=== PATIENT | male | born 1970 | race Asian ===

== ENCOUNTER 2018-07-06 15:59 | Inpatient (IN) | payer MEDICAID, OTHER ==
[~2018-07-06] VITALS: Ht 175.3 cm; Wt 80.3 kg
[2018-07-06] MEDS ORDERED: METF500T24 PO (21:13)
[2018-07-06] MEDS ORDERED: VALS40TA2 PO (21:13)
--- NOTE | 2018-07-06 21:13 | ERD ---
ER Documentation Chief Complaint Chief Complaint NON PROVOKED CP AT 12PM. EMS CLEARED AT HOME. PAIN CAME BACK NO SOB HPI 47-year-old male history of diabetes, hypertension hyperlipidemia ambulatory to the ED complaining of chest pain. 3 days ago patient began to experience exertional, squeezing, nonradiating episodes of substernal chest pain with shortness of breath but no nausea, vomiting or diaphoresis. He went to a urgent care clinic and was diagnosed with GERD and treated with omeprazole. Symptoms have been worsening and today while walking and an episode of severe pain resolved after 10 minutes of rest but then recurred 2 more times prior to arrival. Denies abdominal pain or back pain. No leg pain or swelling. No URI symptoms, cough or hemoptysis. Denies headache, focal weakness or numbness. No fevers or chills. ROS All systems reviewed and are negative except as per history of present illness. Medications Home Meds Reported Medications Ranitidine Hcl* (Ranitidine Hcl*) 150 Mg Tablet, 150 MG PO Q12, #60 TAB 07/06/18 Simvastatin* (Zocor*) 20 Mg Tablet, 20 MG PO QHS, #30 TAB 07/06/18 Benazepril Hcl* (Benazepril Hcl*) 20 Mg Tablet, 20 MG PO DAILY, #30 TAB 07/06/18 Valsartan* (Diovan*) Unknown Strength Tablet, 1 TAB PO DAILY, TAB 07/06/18 Metformin Hcl* (Metformin Hcl*) 500 Mg Tablet, 500 MG PO WITH BREAKFAST, #30 TAB 07/06/18 Allergies Allergies: Coded Allergies: No Known Allergy (Unverified , 07/06/18) PMhx/Soc Reviewed in chart. As per HPI. History of Surgery: No Anesthesia Reaction: No Hx Neurological Disorder: No Hx Respiratory Disorders: No Hx Cardiac Disorders: Yes (hypertension) Hx Psychiatric Problems: No Hx Miscellaneous Medical Probl: No Hx Alcohol Use: No Hx Substance Use: No Smoking Status: Never smoker FmHx Diabetes but no coronary artery disease or sudden cardiac Physical Exam Vitals Vital Signs Date Temp Pulse Resp B/P (MAP) Pulse Ox O2 O2 Flow FiO2 Time Delivery Rate 07/06/18 75 15 140/102 99 Room Air 22:00 (115) 07/06/18 98.7 75 16 153/112 99 Room Air 20:59 (126) 07/06/18 98.0 94 20 160/91 98 16:28 (114) Physical Exam Const: Anxious but in no acute distress. Head: Atraumatic Eyes: Normal Conjunctiva ENT: Normal External Ears, Nose and Mouth. Neck: Full range of motion. No meningismus. Resp: Clear to auscultation bilaterally Cardio: Regular rate and rhythm, no murmurs. Chest Wall: No tenderness. Abd: Soft, non tender, non distended. Normal bowel sounds Skin: No petechiae or rashes Back: No midline or flank tenderness Ext: No cyanosis, or edema. Pulses 4+ in all extremities Neur: Awake and alert. No focal deficit Psych: Anxious but not depressed. Result Diagram: 07/07/18 0507 07/07/18 0507 Results 24 hrs Laboratory Tests Test 07/06/18 20:56 White Blood Count 7.7 10^3/ul Red Blood Count 5.92 10^6/ul Hemoglobin 17.0 g/dl Hematocrit 50.8 % Mean Corpuscular Volume 85.8 fl Mean Corpuscular Hemoglobin 28.7 pg Mean Corpuscular Hemoglobin Concent 33.5 g/dl Red Cell Distribution Width 12.4 % Platelet Count 247 10^3/UL Mean Platelet Volume 10.7 fl Immature Granulocytes % 0.300 % Neutrophils % 47.9 % Lymphocytes % 35.4 % Monocytes % 10.6 % Eosinophils % 5.0 % Basophils % 0.8 % Nucleated Red Blood Cells % 0.0 /100WBC Immature Granulocytes # 0.020 10^3/ul Neutrophils # 3.7 10^3/ul Lymphocytes # 2.7 10^3/ul Monocytes # 0.8 10^3/ul Eosinophils # 0.4 10^3/ul Basophils # 0.1 10^3/ul Nucleated Red Blood Cells # 0.0 10^3/ul Prothrombin Time 12.3 Sec Prothrombin Time Ratio 1.0 INR International Normalized Ratio 0.90 Activated Partial Thromboplast Time 30.8 Sec Sodium Level 140 mmol/L Potassium Level 4.2 mmol/L Chloride Level 102 mmol/L Carbon Dioxide Level 30 mmol/L Anion Gap 8 Blood Urea Nitrogen 13 mg/dl Creatinine 0.97 mg/dl Est Glomerular Filtrat Rate mL/min > 60 mL/min Glucose Level 160 mg/dl Calcium Level 10.0 mg/dl Total Bilirubin 0.6 mg/dl Direct Bilirubin 0.00 mg/dl Indirect Bilirubin 0.6 mg/dl Aspartate Amino Transf (AST/SGOT) 35 IU/L Alanine Aminotransferase (ALT/SGPT) 42 IU/L Alkaline Phosphatase 95 IU/L Troponin I 1.380 ng/ml Total Protein 8.3 g/dl Albumin 4.7 g/dl Globulin 3.60 g/dl Albumin/Globulin Ratio 1.30 Current Medications Medications Dose Sig/Shanika Start Time Status Last (Trade) Ordered Route PRN Stop Time Admin Dose Reason Admin Aspirin 325 mg ONCE STAT 07/06/18 DC 07/06/18 (Aspirin) PO 21:21 22:01 07/06/18 21:22 Heparin 4,000 unit ONCE STAT 07/06/18 DC Sodium IV 22:16 (Porcine) 07/06/18 22:32 (Heparin (1000 Units/ml)) Heparin 250 ml @ 0 ONCE STAT 07/06/18 DC Sodium mls/hr IV 22:16 (Porcine) 07/06/18 22:32 Enoxaparin 80 mg Q12 SC 07/06/18 DC Sodium 22:30 (Lovenox) 07/06/18 22:59 Procedures/MDM DOCUMENTS REVIEWED: ED nurse, no prior records EKG: Time: 16:31. His rhythm. Ventricular rate 91. Normal MT and QRS. No acute ST elevation or depression. Right axis. No ectopy. My Interpretation IMAGING: CHest AP portable: No cardiomegaly, effusions or infiltrates. No mediastinal widening or bony abnormalities. My Interpretation. MEDICAL DECISION MAKIN-year-old male history of diabetes, hypertension hyperlipidemia ambulatory to the ED complaining of chest pain. 3 days ago patient began to experience exertional, squeezing, nonradiating episodes of substernal chest pain with shortness of breath but no nausea, vomiting or diaphoresis. HEART score: 5. Elevated troponin without acute ST elevation consistent with NSTEACS. No chest pain in ED. Aspirin, heparin bolus and infusion initiated. Chest x-ray negative for CHF, pneumonia and pneumothorax. PE and aortic dissection considered. Admit to telemetry for cardiology consultation, further evaluation and management. CARE TRANSFERRED: Time: 22:46. Dr Chavez. CRITICAL CARE TIME: Due to the high probability of imminent clinically significant hemodynamic and cardiovascular deterioration, this patient with chest pain and NSTEACS required multiple, frequent reevaluations of vital signs and response to therapy including intravenous anticoagulation. Additional critical care time was spent in interpretation of relevant clinical data as well as arranging for admission and ongoing care. TOTAL CRITICAL CARE TIME: 35 minutes not including other separately reportable procedures. Departure Diagnosis: Primary Impression: Chest pain Chest pain type: unspecified Qualified Codes: R07.9 - Chest pain, unspecified Additional Impressions: NSTEMI (non-ST elevated myocardial infarction) Diabetes mellitus type 2 in obese Essential hypertension Condition: Serious JAMIE CERVANTES MD Jul 06, 2018 21:13
[2018-07-06] MEDS ORDERED: BENA20TA4 PO (21:14)
[2018-07-06] MEDS ORDERED: SIMV20TA PO (21:14)
[2018-07-06] MEDS ORDERED: RANI150T5 PO (21:15)
[2018-07-06] MEDS ORDERED: ASPIRIN 325 MG TAB PO STA (21:21)
[2018-07-06] MEDS ORDERED: HEPARIN 25000 UNITS/250 ML 250 ML IV STA (22:16)
[2018-07-06] MEDS ORDERED: HEPARIN 1000 UNITS/ML 10 ML INJ IV STA (22:16)
[2018-07-06] MEDS ORDERED: ENOXAPARIN 80 MG/0.8 ML SYG SC SCH (22:30)
--- NOTE | 2018-07-06 22:54 | HP ---
Date/Time of Note Date/Time of Note DATE: 07/06/18 TIME: 22:54 Assessment/Plan VTE Prophylaxis Pharmacological prophylaxis: other Lines/Catheters IV Catheter Type (from Nrsg): Saline Lock Assessment/Plan Hospital Course Objective Physical exam General: Patient is laying in bed and answers questions appropriately Mentation: Patient is alert and oriented 4, Head: Normocephalic atraumatic Eyes: EOMI, pupils reactive to light Neck: Supple, nontender, midline Respiratory: Clear to auscultation bilaterally Cardiovascular: regular rate, no obvious murmurs Gastrointestinal: non-tender to palpation, bowel sounds heard. Neurological: Moves all extremities spontaneously Skin: No new skin lesions Assessment and plan Non-ST elevated NC -Trend troponins -Cardiology consulted, Dr. Gómez, confirmed -Cardiology wants heparin instead of Lovenox due to being able to turn off quicker as he wants to likely perform cardiac cath tomorrow -Statin -Aspirin -Mild IV hydration while n.p.o. Hypertension -Treat as needed Dyslipidemia -Statin Diabetes mellitus -Hold home meds, insulin sliding scale for now Disposition -N.p.o. per cardiology wishes, cardiac cath likely tomorrow Result Diagram: 07/06/18205507/06/182055 Results 24hrs Laboratory Tests Test 07/06/18 20:56 White Blood Count 7.7 Red Blood Count 5.92 Hemoglobin 17.0 Hematocrit 50.8 Mean Corpuscular Volume 85.8 Mean Corpuscular Hemoglobin 28.7 L Mean Corpuscular Hemoglobin Concent 33.5 Red Cell Distribution Width 12.4 Platelet Count 247 Mean Platelet Volume 10.7 H Immature Granulocytes % 0.300 Neutrophils % 47.9 Lymphocytes % 35.4 Monocytes % 10.6 Eosinophils % 5.0 Basophils % 0.8 Nucleated Red Blood Cells % 0.0 Immature Granulocytes # 0.020 Neutrophils # 3.7 Lymphocytes # 2.7 Monocytes # 0.8 Eosinophils # 0.4 Basophils # 0.1 Nucleated Red Blood Cells # 0.0 Prothrombin Time 12.3 Prothrombin Time Ratio 1.0 INR International Normalized Ratio 0.90 Activated Partial Thromboplast Time 30.8 Sodium Level 140 Potassium Level 4.2 Chloride Level 102 Carbon Dioxide Level 30 Anion Gap 8 Blood Urea Nitrogen 13 Creatinine 0.97 Est Glomerular Filtrat Rate mL/min > 60 Glucose Level 160 Calcium Level 10.0 Total Bilirubin 0.6 Direct Bilirubin 0.00 Indirect Bilirubin 0.6 Aspartate Amino Transf (AST/SGOT) 35 Alanine Aminotransferase (ALT/SGPT) 42 Alkaline Phosphatase 95 Troponin I 1.380 *H Total Protein 8.3 H Albumin 4.7 Globulin 3.60 H Albumin/Globulin Ratio 1.30 HPI/ROS Admit Date/Time Admit Date/Time Hx of Present Illness Patient is a male with a past medical history significant for diabetes mellitus, dyslipidemia, hypertension who presents to [facility] ER for chest pain. Patient states that approximately 3 days ago he has had on and off substernal chest pain. Patient went to urgent care was diagnosed with acid reflux and was sent home with acid reflux medication. Patient continued to have exertional chest pain and pain continued which is why he came to the ED. Patient currently has mild to no chest pain. Patient denies abdominal pain, leg pain, headache, shortness of breath, nausea, vomiting. Patient states that the only surgery he had is an abdominal surgery for SBO many years ago. Patient has no cardiac history according to him PMH/Family/Social Past Medical History Medications Current Medications Enoxaparin Sodium (Lovenox) 80 mg Q12 SC ; Start 07/06/18 at 22:30 Miscellaneous Information (* Miscellaneous Pharmacy Order) Discontinue current oral sulfonylur... ONCE ONCE XX ; Start 07/06/18 at 23:00; Stop 07/06/18 at 23:01 Diagnostic Test (Pha) (Accu-Chek) 1 ea 02 XX ; Start 07/07/18 at 02:00 Miscellaneous Information (* Miscellaneous Pharmacy Order) HYPOGLYCEMIA PROTOCOL w... ONCE ONCE XX ; Start 07/06/18 at 23:00; Stop 07/06/18 at 23:01 Insulin Aspart (Novolog Insulin Pen) NOVOLOG *MILD* ALGORITHM WITH MEALS BEDTIME SC ; Start 07/07/18 at 08:00 Miscellaneous Information (* Miscellaneous Pharmacy Order) Discontinue all previ... ONCE ONCE XX ; Start 07/06/18 at 23:00; Stop 07/06/18 at 23:01 Ondansetron HCl (Zofran Inj) 4 mg ER BRIDGE PRN IV NAUSEA/VOMITING; Start 07/06/18 at 23:00; Stop 07/07/18 at 22:59 Acetaminophen (Tylenol Tab) 650 mg ER BRIDGE PRN PO .MILD PAIN 1-3 OR TEMP; Start 07/06/18 at 23:00; Stop 07/07/18 at 22:59 Miscellaneous Information 1 ea NOTE XX ; Start 07/06/18 at 23:00 Glucose (Glutose) 15 gm Q15M PRN PO DECREASED GLUCOSE; Start 07/06/18 at 23:00 Glucose (Glutose) 22.5 gm Q15M PRN PO DECREASED GLUCOSE; Start 07/06/18 at 23 :00 Dextrose (D50w Syringe) 25 ml Q15M PRN IV DECREASED GLUCOSE; Start 07/06/18 at 23:00 Dextrose (D50w Syringe) 50 ml Q15M PRN IV DECREASED GLUCOSE; Start 07/06/18 at 23:00 Glucagon (Glucagen) 1 mg Q15M PRN IM DECREASED GLUCOSE; Start 07/06/18 at 23:00 Glucose (Glutose) 15 gm Q15M PRN BUCCAL DECREASED GLUCOSE; Start 07/06/18 at 23:00 Miscellaneous Information (* Miscellaneous Pharmacy Order) DC previous hepa... ONCE ONCE XX ; Start 07/06/18 at 23:00; Stop 07/06/18 at 23:01; Status UNV Heparin Sodium (Porcine) (Heparin (1000 Units/ml)) 4,000 unit ONCE ONCE IV ; Start 07/06/18 at 23:00; Stop 07/06/18 at 23:01; Status UNV Heparin Sodium (Porcine) (Heparin (1000 Units/ml)) 4,000 unit PER PROTOCOL PRN IV aPTT<47; Start 07/06/18 at 23:00; Status UNV Heparin Sodium (Porcine) 250 ml @ 0 mls/hr PER PROTOCOL IV ; Start 07/06/18 at 23:00; Status UNV Sodium Chloride 1,000 ml @ 75 mls/hr [id number] IV ; Start 07/06/18 at 23:00; Status UNV Pantoprazole (Protonix Iv) 40 mg DAILY@06 IV ; Start 07/07/18 at 06:00; Status UNV Atorvastatin Calcium (Lipitor) 80 mg HS PO ; Start 07/07/18 at 21:00; Status UNV Atorvastatin Calcium (Lipitor) 80 mg ONCE ONCE PO ; Start 07/06/18 at 23:00; Stop 07/06/18 at 23:01; Status UNV Coded Allergies: No Known Allergy (Unverified , 07/06/18) Social History Smoking Status: Never smoker Exam/Review of Systems Vital Signs Vitals Vital Signs Date Temp Pulse Resp B/P (MAP) Pulse Ox O2 O2 Flow FiO2 Time Delivery Rate 07/06/18 98.7 75 16 153/112 99 Room Air 20:59 (126) BINH GRESHAM Jul 06, 2018 22:54
[2018-07-06] MEDS ORDERED: GLUCAGON 1 MG INJ IM PRN (23:00)
[2018-07-06] MEDS ORDERED: GLUCOSE GEL 15 GRAM TUBE BUCCAL PRN (23:00)
[2018-07-06] MEDS ORDERED: HEPARIN 1000 UNITS/ML 10 ML INJ IV PRN (23:00)
[2018-07-06] MEDS ORDERED: ACETAMINOPHEN 325 MG TAB PO PRN ×2 (23:00)
[2018-07-06] MEDS ORDERED: ATORVASTATIN 80 MG TAB PO ONE (23:00)
[2018-07-06] MEDS ORDERED: GLUCOSE GEL 15 GRAM TUBE PO PRN ×2 (23:00)
[2018-07-06] MEDS ORDERED: HEPARIN 25000 UNITS/250 ML 250 ML IV SCH (23:00)
[2018-07-06] MEDS ORDERED: NACL 0.9% 3 ML SYG IV SCH (23:00)
[2018-07-06] MEDS ORDERED: NITROGLYCERIN (SL) 0.4 MG TAB SL PRN (23:00)
[2018-07-06] MEDS ORDERED: DEXTROSE 50% 50 ML SYRINGE IV PRN ×2 (23:00)
[2018-07-06] MEDS ORDERED: ONDANSETRON 4 MG INJ IV PRN ×2 (23:00)
[2018-07-06] MEDS ORDERED: HEPARIN 1000 UNITS/ML 10 ML INJ IV ONE (23:00)
[2018-07-06] MEDS ORDERED: HYDROCODONE/APAP (5/325) TAB PO PRN (23:00)
[2018-07-06] MEDS: SOD CHLORIDE 0.45% 1,000 ML IV SCH (23:31)
[2018-07-07] VITALS (47 sets, daily range): BP systolic 108–146; BP diastolic 64–91; PULSE 62–92; RESP 9–22; Ht 175.3 cm; Wt 80.3 kg
[2018-07-07] MEDS: morphine 2 MG INJ IV PRN (00:08)
[2018-07-07] MEDS ORDERED: PANTOPRAZOLE 40 MG INJ IV ONE (00:30)
[2018-07-07] MEDS ORDERED: FAMOTIDINE 20 MG INJ IV ONE (00:30)
[2018-07-07] MEDS: ACCU-CHEK XX SCH (02:00)
--- NOTE | 2018-07-07 04:30 | NUR ---
PT ADMITTED FROM ER AT 0355. REPORT RECEIVED FROM Buster TUCKER RN. PT STABLE. ABLE TO UP AND AMBULATE. NO SIGN OR SYMPTOMS OF DISTRESS. WILL CONTINUE TO MONITOR. PT NPO AT THIS TIME. DR GRESHAM NOTIFIED AND BLOOD SUGARS TO BE DONE EVERY [address] GRESHAM.
[2018-07-07] MEDS: PANTOPRAZOLE 40 MG INJ IV SCH (05:46)
--- NOTE | 2018-07-07 06:45 | NUR ---
Noted Heparin drip not started, call was made to Dr. Chavez to clarify orders for Heparin drip. Stated to start Heparin drip SHARON. Order for PTT stat was made, call was made to the lab regarding order. Stated will send vegetable tester right away. Pt not in distress at this time.
[2018-07-07] MEDS: Insulin NOVOLOG SS MILD Algorithm (NPO/TPN/ENTERAL FEEDS) SC SCH ×4 (07:31→23:38)
[2018-07-07] MEDS ORDERED: INSULIN ASPART [NOVOLOG] 3 ML PEN SC SCH ×2 (07:35→09:00)
[2018-07-07] MEDS ORDERED: HEPARIN 1000 UNITS/ML 10 ML INJ IV ONE (08:00)
--- NOTE | 2018-07-07 08:00 | NUR ---
Inspection And Testing Supervisor came to draw pt PTT,waiting for results.
--- NOTE | 2018-07-07 09:00 | NUR ---
Results of PTT came 32.3, called pharmacist:Adriana to verify heparin drip dosage. Heparin drip started at 9.6cc/hr,verified by another nurse. Education about new medication provided to pt, verbalized understanding.
[2018-07-07] MEDS: ASPIRIN 81 MG TAB PO SCH (09:06)
--- NOTE | 2018-07-07 10:59 | NUR ---
Seen and examined by Dr Melendez, no new orders made.
--- NOTE | 2018-07-07 11:06 | PN ---
Date/Time of Note Date/Time of Note DATE: 07/07/18 TIME: 11:03 Assessment/Plan VTE Prophylaxis Risk score (from Ns)>0 risk: 1 SCD applied (from Ns): Yes SCD contraindicated: low risk/ambulating Pharmacological prophylaxis: heparin Lines/Catheters [facility] Saline Lock Assessment/Plan Hospital Course Assessment and plan 1. Suspected NSTEMI, stable continue medical management. Probable cardiac cath later today 2. Type 2 diabetes A1c 8.6 not at goal 3. Hypertension 4. Dyslipidemia S: Abdo discomfort, constant but improved since he is not active. No diaphoresis syncope dyspnea or recent travel. No allergies, habits, or fh cad/ cancer/ stroke. O: Vital signs stable sinus rhythm poor R wave progression through anteroseptal leads Physical exam No pallor JVD adenopathy Regular no murmur rub gallop Clear Benign no abdominal bruits No edema/Homans Result Diagram: 07/07/18 0507 07/07/18 0507 Results 24hrs Laboratory Tests Test 07/06/18 20:56 07/06/18 23:06 07/07/18 03:16 07/07/18 05:07 White Blood Count 7.7 7.3 7.3 Red Blood Count 5.92 5.57 5.46 Hemoglobin 17.0 16.1 16.0 Hematocrit 50.8 47.8 46.7 Mean Corpuscular 85.8 85.8 85.5 Volume Mean Corpuscular 28.7 L 28.9 L 29.3 Hemoglobin Mean Corpuscular 33.5 33.7 34.3 Hemoglobin Concent Red Cell 12.4 12.3 12.3 Distribution Width Platelet Count 247 237 220 Mean Platelet Volume 10.7 H 10.3 10.5 H Immature 0.300 0.100 0.400 Granulocytes % Neutrophils % 47.9 50.2 58.3 Lymphocytes % 35.4 34.9 28.0 Monocytes % 10.6 8.8 8.3 Eosinophils % 5.0 5.2 4.5 Basophils % 0.8 0.8 0.5 Nucleated Red Blood 0.0 0.0 0.0 Cells % Immature 0.020 0.010 0.030 Granulocytes # Neutrophils # 3.7 3.7 4.3 Lymphocytes # 2.7 2.6 2.1 Monocytes # 0.8 0.6 0.6 Eosinophils # 0.4 0.4 0.3 Basophils # 0.1 0.1 0.0 Nucleated Red Blood 0.0 0.0 0.0 Cells # Prothrombin Time 12.3 12.7 Prothrombin Time 1.0 1.0 Ratio INR International 0.90 0.94 Normalized Ratio Activated 30.8 32.3 Partial Thromboplast Time Sodium Level 140 138 Potassium Level 4.2 4.2 Chloride Level 102 104 Carbon Dioxide Level 30 32 H Anion Gap 8 2 L Blood Urea Nitrogen 13 12 Creatinine 0.97 0.97 Est Glomerular > 60 > 60 Filtrat Rate mL/min Glucose Level 160 155 Calcium Level 10.0 9.6 Total Bilirubin 0.6 1.1 Direct Bilirubin 0.00 0.00 Indirect Bilirubin 0.6 1.1 Aspartate Amino 35 32 Transf (AST/SGOT) Alanine 42 43 Aminotransferase (AL T/SGPT) Alkaline Phosphatase 95 88 Troponin I 1.380 *H 1.350 *H Total Protein 8.3 H 6.9 # Albumin 4.7 4.0 Globulin 3.60 H 2.90 Albumin/Globulin 1.30 1.37 Ratio Thrombin Time 16.4 Bedside Glucose 131 Hemoglobin A1c 8.6 H Magnesium Level 2.0 Creatine Kinase 116 Creatine Kinase 2.3 Index Creatinine Kinase MB 2.63 H (Mass) Triglycerides Level 174 H Cholesterol Level 139 LDL Cholesterol, 73 Calculated HDL Cholesterol 31 Cholesterol/HDL 4.4 Ratio Thyroid Stimulating 1.370 Hormone (TSH) Test 07/07/18 07:27 07/07/18 07:55 07/07/18 09:08 Bedside Glucose 164 Activated 32.3 Partial Thromboplast Time Lab Scanned Report LAB Exam/Review of Systems Exam Vitals Vital Signs Date Temp Pulse Resp B/P (MAP) Pulse Ox O2 O2 Flow FiO2 Time Delivery Rate 07/07/18 97.8 67 17 146/89 97 Room Air 08:39 (108) Intake and Output 07/06/18 07/06/18 07/07/18 1515:00 23:00 07:00 IntakeIntake Total 450 ml BalanceBalance 450 ml Results Results 24hrs Laboratory Tests Test 07/06/18 20:56 07/06/18 23:06 07/07/18 03:16 07/07/18 05:07 White Blood Count 7.7 7.3 7.3 Red Blood Count 5.92 5.57 5.46 Hemoglobin 17.0 16.1 16.0 Hematocrit 50.8 47.8 46.7 Mean Corpuscular 85.8 85.8 85.5 Volume Mean Corpuscular 28.7 L 28.9 L 29.3 Hemoglobin Mean Corpuscular 33.5 33.7 34.3 Hemoglobin Concent Red Cell 12.4 12.3 12.3 Distribution Width Platelet Count 247 237 220 Mean Platelet Volume 10.7 H 10.3 10.5 H Immature 0.300 0.100 0.400 Granulocytes % Neutrophils % 47.9 50.2 58.3 Lymphocytes % 35.4 34.9 28.0 Monocytes % 10.6 8.8 8.3 Eosinophils % 5.0 5.2 4.5 Basophils % 0.8 0.8 0.5 Nucleated Red Blood 0.0 0.0 0.0 Cells % Immature 0.020 0.010 0.030 Granulocytes # Neutrophils # 3.7 3.7 4.3 Lymphocytes # 2.7 2.6 2.1 Monocytes # 0.8 0.6 0.6 Eosinophils # 0.4 0.4 0.3 Basophils # 0.1 0.1 0.0 Nucleated Red Blood 0.0 0.0 0.0 Cells # Prothrombin Time 12.3 12.7 Prothrombin Time 1.0 1.0 Ratio INR International 0.90 0.94 Normalized Ratio Activated 30.8 32.3 Partial Thromboplast Time Sodium Level 140 138 Potassium Level 4.2 4.2 Chloride Level 102 104 Carbon Dioxide Level 30 32 H Anion Gap 8 2 L Blood Urea Nitrogen 13 12 Creatinine 0.97 0.97 Est Glomerular > 60 > 60 Filtrat Rate mL/min Glucose Level 160 155 Calcium Level 10.0 9.6 Total Bilirubin 0.6 1.1 Direct Bilirubin 0.00 0.00 Indirect Bilirubin 0.6 1.1 Aspartate Amino 35 32 Transf (AST/SGOT) Alanine 42 43 Aminotransferase (AL T/SGPT) Alkaline Phosphatase 95 88 Troponin I 1.380 *H 1.350 *H Total Protein 8.3 H 6.9 # Albumin 4.7 4.0 Globulin 3.60 H 2.90 Albumin/Globulin 1.30 1.37 Ratio Thrombin Time 16.4 Bedside Glucose 131 Hemoglobin A1c 8.6 H Magnesium Level 2.0 Creatine Kinase 116 Creatine Kinase 2.3 Index Creatinine Kinase MB 2.63 H (Mass) Triglycerides Level 174 H Cholesterol Level 139 LDL Cholesterol, 73 Calculated HDL Cholesterol 31 Cholesterol/HDL 4.4 Ratio Thyroid Stimulating 1.370 Hormone (TSH) Test 07/07/18 07:27 07/07/18 07:55 07/07/18 09:08 Bedside Glucose 164 Activated 32.3 Partial Thromboplast Time Lab Scanned Report LAB Medications Medication Current Medications Diagnostic Test (Pha) (Accu-Chek) 1 ea 02 XX ; Start 07/07/18 at 02:00 Ondansetron HCl (Zofran Inj) 4 mg ER BRIDGE PRN IV NAUSEA/VOMITING Last administered on 07/07/18at 00:08; Admin Dose 4 MG; Start 07/06/18 at 23:00; Stop 07/07/18 at 22:59 Acetaminophen (Tylenol Tab) 650 mg ER BRIDGE PRN PO .MILD PAIN 1-3 OR TEMP; Start 07/06/18 at 23:00; Stop 07/07/18 at 22:59 Miscellaneous Information 1 ea NOTE XX ; Start 07/06/18 at 23:00 Glucose (Glutose) 15 gm Q15M PRN PO DECREASED GLUCOSE; Start 07/06/18 at 23:00 Glucose (Glutose) 22.5 gm Q15M PRN PO DECREASED GLUCOSE; Start 07/06/18 at 23:00 Dextrose (D50w Syringe) 25 ml Q15M PRN IV DECREASED GLUCOSE; Start 07/06/18 at 23:00 Dextrose (D50w Syringe) 50 ml Q15M PRN IV DECREASED GLUCOSE; Start 07/06/18 at 23:00 Glucagon (Glucagen) 1 mg Q15M PRN IM DECREASED GLUCOSE; Start 07/06/18 at 23:00 Glucose (Glutose) 15 gm Q15M PRN BUCCAL DECREASED GLUCOSE; Start 07/06/18 at 23:00 Heparin Sodium (Porcine) (Heparin (1000 Units/ml)) 4,000 unit PER PROTOCOL PRN IV aPTT<47; Start 07/06/18 at 23:00 Heparin Sodium (Porcine) 250 ml @ 9.8 mls/hr PER PROTOCOL IV Last administered on 07/07/18at 09:06; Admin Dose 9.6 MLS/HR; Start 07/06/18 at 23:00 Sodium Chloride 1,000 ml @ 75 mls/hr [id number] IV Last administered on 07/06/18at 23:31; Admin Dose 75 MLS/HR; Start 07/06/18 at 23:00 Pantoprazole (Protonix Iv) 40 mg DAILY@06 IV Last administered on 07/07/18at 05:46; Admin Dose 40 MG; Start 07/07/18 at 06:00 Atorvastatin Calcium (Lipitor) 80 mg HS PO ; Start 07/07/18 at 21:00 IV Flush (NS 3 ml) 3 ml PER PROTOCOL IV ; Start 07/06/18 at 23:00 Ondansetron HCl (Zofran Inj) 4 mg Q6H PRN IV NAUSEA/VOMITING; Start 07/06/18 at 23:00 Aspirin (Aspirin) 81 mg DAILY PO Last administered on 07/07/18at 09:06; Admin Dose 81 MG; Start 07/07/18 at 09:00 Nitroglycerin (Nitroglycerin (Sl Tab) 0.4 Mg) 1 tab Q5M PRN SL .CHEST PAIN; Start 07/06/18 at 23:00 Acetaminophen (Tylenol Tab) 650 mg Q6H PRN PO .PAIN 1-3 OR TEMP; Start 07/06/18 at 23:00 Acetaminophen/ Hydrocodone Bitart (Kismet (5/325)) 1 tab Q6H PRN PO .PAIN 4-6; Start 07/06/18 at 23:00 Morphine Sulfate (morphine) 2 mg Q4H PRN IV .PAIN 7-10; Start 07/06/18 at 23:00 Influenza Virus Vaccine Quadrival (Fluzone) 0.5 ml ONCE ONCE IM* ; Start 07/08/18 at 10:00; Stop 07/08/18 at 10:01 Insulin Aspart (Novolog Insulin Pen) (Adult SC Insulin - Mild Algorithm)... Q6 SC Last administered on 07/07/18at 07:31; Admin Dose 1 UNIT; Start 07/07/18 at 06:00 BLAKE NG MD Jul 07, 2018 11:06
[2018-07-07] MEDS: SOD CHLORIDE 0.45% 1,000 ML IV SCH (12:03)
--- NOTE | 2018-07-07 12:10 | NUR ---
Seen and examined by Dr Gómez.
--- NOTE | 2018-07-07 12:22 | NUR ---
Pt signed consent for Left heart catheterization coronary angiogram,percutaneous coronary intervention. Secured on the chart.
--- NOTE | 2018-07-07 13:47 | CONS ---
Assessment/Plan Assessment/Plan Assessment/Plan (Daily) Non-ST elevation myocardial infarction Diabetes Hypertension Dyslipidemia Recommendations: Continue with aspirin and high-dose statin Heparin will be discontinued. Beta-musa will be added as tolerated Patient was recommended to undergo left heart catheter and coronary angiogram possible percutaneous coronary intervention. Risks benefits alternatives of procedure discussed with the patient in detail. Risks including but not limited to risk of infection vascular complication bleeding complication LA stroke arrhythmia renal failure etc. discussed with him. He is consented to procedure. Thank you for his referral. We will continue to follow along with you EVERARDO GAN MD [facility] Consultation Date/Type/Reason Admit Date/Time Date of Consultation: Jul 07, 2018 Type of Consult Cardiology Reason for Consultation NSTEMI Requesting Provider: BINH GRESHAM Date/Time of Note DATE: 07/07/18 TIME: 13:41 Hx of Present Illness Interventional cardiology consultation note Chief complaint: CHESTPAIN Reason for consult: + Trop History of present illness: Thank you for this referral. History was obtained from the patient discussion with the staff and physicians This is a pleasant 47-year-old gentleman with history of diabetes hypertension dyslipidemia who presents emergency above complaint of chest pain. Patient has had exertional anterior mild chest discomfort over the past 2-3 weeks. Only comes with exertion. However last night he was walking about 200 yards when he started having severe anterior chest pain lasted a lot longer. He came to emergency room. Troponin has been positive. Been placed in heparin drip and address currently chest pain-free Allergies: No known drug allergies Medications were reviewed as per medical reconciliation sheet Family history: Denies history of early coronary artery disease Social history: Non-smoker Past medical history: Diabetes hypertension dyslipidemia Review of system: Patient denies all others except for above-mentioned. Specifically denies any bleeding to me Past Medical History Home Meds Reported Medications Ranitidine Hcl* (Ranitidine Hcl*) 150 Mg Tablet, 150 MG PO Q12, #60 TAB 07/06/18 Simvastatin* (Zocor*) 20 Mg Tablet, 20 MG PO QHS, #30 TAB 07/06/18 Benazepril Hcl* (Benazepril Hcl*) 20 Mg Tablet, 20 MG PO DAILY, #30 TAB 07/06/18 Valsartan* (Diovan*) Unknown Strength Tablet, 1 TAB PO DAILY, TAB 07/06/18 Metformin Hcl* (Metformin Hcl*) 500 Mg Tablet, 500 MG PO WITH BREAKFAST, #30 TAB 07/06/18 Medications Current Medications Diagnostic Test (Pha) (Accu-Chek) 1 ea 02 XX ; Start 07/07/18 at 02:00 Miscellaneous Information 1 ea NOTE XX ; Start 07/06/18 at 23:00 Glucose (Glutose) 15 gm Q15M PRN PO DECREASED GLUCOSE; Start 07/06/18 at 23:00 Glucose (Glutose) 22.5 gm Q15M PRN PO DECREASED GLUCOSE; Start 07/06/18 at 23:00 Dextrose (D50w Syringe) 25 ml Q15M PRN IV DECREASED GLUCOSE; Start 07/06/18 at 23:00 Dextrose (D50w Syringe) 50 ml Q15M PRN IV DECREASED GLUCOSE; Start 07/06/18 at 23:00 Glucagon (Glucagen) 1 mg Q15M PRN IM DECREASED GLUCOSE; Start 07/06/18 at 23:00 Glucose (Glutose) 15 gm Q15M PRN BUCCAL DECREASED GLUCOSE; Start 07/06/18 at 23:00 Heparin Sodium (Porcine) (Heparin (1000 Units/ml)) 4,000 unit PER PROTOCOL PRN IV aPTT<47; Start 07/06/18 at 23:00 Heparin Sodium (Porcine) 250 ml @ 9.8 mls/hr PER PROTOCOL IV Last administered on 07/07/18at 09:06; Admin Dose 9.6 MLS/HR; Start 07/06/18 at 23:00 Sodium Chloride 1,000 ml @ 75 mls/hr [id number] IV Last administered on 07/07/18at 12:03; Admin Dose 75 MLS/HR; Start 07/06/18 at 23:00 Pantoprazole (Protonix Iv) 40 mg DAILY@06 IV Last administered on 07/07/18at 0 5:46; Admin Dose 40 MG; Start 07/07/18 at 06:00 Atorvastatin Calcium (Lipitor) 80 mg HS PO ; Start 07/07/18 at 21:00 IV Flush (NS 3 ml) 3 ml PER PROTOCOL IV ; Start 07/06/18 at 23:00 Ondansetron HCl (Zofran Inj) 4 mg Q6H PRN IV NAUSEA/VOMITING; Start 07/06/18 at 23:00 Aspirin (Aspirin) 81 mg DAILY PO Last administered on 07/07/18at 09:06; Admin Dose 81 MG; Start 07/07/18 at 09:00 Nitroglycerin (Nitroglycerin (Sl Tab) 0.4 Mg) 1 tab Q5M PRN SL .CHEST PAIN; Start 07/06/18 at 23:00 Acetaminophen (Tylenol Tab) 650 mg Q6H PRN PO .PAIN 1-3 OR TEMP; Start 07/06/18 at 23:00 Acetaminophen/ Hydrocodone Bitart (Enterprise (5/325)) 1 tab Q6H PRN PO .PAIN 4-6; Start 07/06/18 at 23:00 Morphine Sulfate (morphine) 2 mg Q4H PRN IV .PAIN 7-10; Start 07/06/18 at 23:00 Influenza Virus Vaccine Quadrival (Fluzone) 0.5 ml ONCE ONCE IM* ; Start 07/08/18 at 10:00; Stop 07/08/18 at 10:01 Insulin Aspart (Novolog Insulin Pen) (Adult SC Insulin - Mild Algorithm)... Q6 SC Last administered on 07/07/18at 07:31; Admin Dose 1 UNIT; Start 07/07/18 at 06:00 Allergies: Coded Allergies: No Known Allergy (Unverified , 07/06/18) Social History Smoking Status: Never smoker Exam/Review of Systems Vital Signs Vitals Vital Signs Date Temp Pulse Resp B/P (MAP) Pulse Ox O2 O2 Flow FiO2 Time Delivery Rate 07/07/18 71 12:12 07/07/18 97.9 18 127/84 95 Room Air 12:00 (98) Intake and Output 07/06/18 07/06/18 07/07/18 1515:00 23:00 07:00 IntakeIntake Total 450 ml BalanceBalance 450 ml Exam Exam General: no acute distress HEENT: NC/AT. pupils are equal. round. NECK: NO JVD. no stridor. CV: RRR. systolic murmur; no gallop or rubs. PULM: no wheezing or rhonchi. GI: SOFT, NT, ND, no rebound or guarding Extremity: trace B/L LE edema. no clubbing. neuro: awake and alert, OX3. Psych: calm and pleasant rectal: deferred : normal EKG normal sinus rhythm with poor R wave progression cannot rule anterior infarct : Labs Result Diagram: 07/07/18 0507 07/07/18 0507 Results 24hrs Laboratory Tests Test 07/06/18 20:56 07/06/18 23:06 07/07/18 03:16 07/07/18 05:07 White Blood Count 7.7 7.3 7.3 Red Blood Count 5.92 5.57 5.46 Hemoglobin 17.0 16.1 16.0 Hematocrit 50.8 47.8 46.7 Mean Corpuscular 85.8 85.8 85.5 Volume Mean Corpuscular 28.7 L 28.9 L 29.3 Hemoglobin Mean Corpuscular 33.5 33.7 34.3 Hemoglobin Concent Red Cell 12.4 12.3 12.3 Distribution Width Platelet Count 247 237 220 Mean Platelet Volume 10.7 H 10.3 10.5 H Immature 0.300 0.100 0.400 Granulocytes % Neutrophils % 47.9 50.2 58.3 Lymphocytes % 35.4 34.9 28.0 Monocytes % 10.6 8.8 8.3 Eosinophils % 5.0 5.2 4.5 Basophils % 0.8 0.8 0.5 Nucleated Red Blood 0.0 0.0 0.0 Cells % Immature 0.020 0.010 0.030 Granulocytes # Neutrophils # 3.7 3.7 4.3 Lymphocytes # 2.7 2.6 2.1 Monocytes # 0.8 0.6 0.6 Eosinophils # 0.4 0.4 0.3 Basophils # 0.1 0.1 0.0 Nucleated Red Blood 0.0 0.0 0.0 Cells # Prothrombin Time 12.3 12.7 Prothrombin Time 1.0 1.0 Ratio INR International 0.90 0.94 Normalized Ratio Activated 30.8 32.3 Partial Thromboplast Time Sodium Level 140 138 Potassium Level 4.2 4.2 Chloride Level 102 104 Carbon Dioxide Level 30 32 H Anion Gap 8 2 L Blood Urea Nitrogen 13 12 Creatinine 0.97 0.97 Est Glomerular > 60 > 60 Filtrat Rate mL/min Glucose Level 160 155 Calcium Level 10.0 9.6 Total Bilirubin 0.6 1.1 Direct Bilirubin 0.00 0.00 Indirect Bilirubin 0.6 1.1 Aspartate Amino 35 32 Transf (AST/SGOT) Alanine 42 43 Aminotransferase (AL T/SGPT) Alkaline Phosphatase 95 88 Troponin I 1.380 *H 1.350 *H Total Protein 8.3 H 6.9 # Albumin 4.7 4.0 Globulin 3.60 H 2.90 Albumin/Globulin 1.30 1.37 Ratio Thrombin Time 16.4 Bedside Glucose 131 Hemoglobin A1c 8.6 H Magnesium Level 2.0 Creatine Kinase 116 Creatine Kinase 2.3 Index Creatinine Kinase MB 2.63 H (Mass) Triglycerides Level 174 H Cholesterol Level 139 LDL Cholesterol, 73 Calculated HDL Cholesterol 31 Cholesterol/HDL 4.4 Ratio Thyroid Stimulating 1.370 Hormone (TSH) Test 07/07/18 07:27 07/07/18 07:55 07/07/18 09:08 07/07/18 10:02 Bedside Glucose 164 Activated 32.3 Partial Thromboplast Time Lab Scanned Report LAB Creatine Kinase 120 Creatine Kinase 1.7 Index Creatinine Kinase MB 2.02 (Mass) Troponin I 0.964 *H Test 07/07/18 12:02 Bedside Glucose 133 Medications Medications Current Medications Diagnostic Test (Pha) (Accu-Chek) 1 ea 02 XX ; Start 07/07/18 at 02:00 Miscellaneous Information 1 ea NOTE XX ; Start 07/06/18 at 23:00 Glucose (Glutose) 15 gm Q15M PRN PO DECREASED GLUCOSE; Start 07/06/18 at 23:00 Glucose (Glutose) 22.5 gm Q15M PRN PO DECREASED GLUCOSE; Start 07/06/18 at 23 :00 Dextrose (D50w Syringe) 25 ml Q15M PRN IV DECREASED GLUCOSE; Start 07/06/18 at 23:00 Dextrose (D50w Syringe) 50 ml Q15M PRN IV DECREASED GLUCOSE; Start 07/06/18 at 23:00 Glucagon (Glucagen) 1 mg Q15M PRN IM DECREASED GLUCOSE; Start 07/06/18 at 23:00 Glucose (Glutose) 15 gm Q15M PRN BUCCAL DECREASED GLUCOSE; Start 07/06/18 at 23:00 Heparin Sodium (Porcine) (Heparin (1000 Units/ml)) 4,000 unit PER PROTOCOL PRN IV aPTT<47; Start 07/06/18 at 23:00 Heparin Sodium (Porcine) 250 ml @ 9.8 mls/hr PER PROTOCOL IV Last administered on 07/07/18at 09:06; Admin Dose 9.6 MLS/HR; Start 07/06/18 at 23:00 Sodium Chloride 1,000 ml @ 75 mls/hr [id number] IV Last administered on 07/07/18at 12:03; Admin Dose 75 MLS/HR; Start 07/06/18 at 23:00 Pantoprazole (Protonix Iv) 40 mg DAILY@06 IV Last administered on 07/07/18at 05:46; Admin Dose 40 MG; Start 07/07/18 at 06:00 Atorvastatin Calcium (Lipitor) 80 mg HS PO ; Start 07/07/18 at 21:00 IV Flush (NS 3 ml) 3 ml PER PROTOCOL IV ; Start 07/06/18 at 23:00 Ondansetron HCl (Zofran Inj) 4 mg Q6H PRN IV NAUSEA/VOMITING; Start 07/06/18 at 23:00 Aspirin (Aspirin) 81 mg DAILY PO Last administered on 07/07/18at 09:06; Admin Dose 81 MG; Start 07/07/18 at 09:00 Nitroglycerin (Nitroglycerin (Sl Tab) 0.4 Mg) 1 tab Q5M PRN SL .CHEST PAIN; Start 07/06/18 at 23:00 Acetaminophen (Tylenol Tab) 650 mg Q6H PRN PO .PAIN 1-3 OR TEMP; Start 07/06/18 at 23:00 Acetaminophen/ Hydrocodone Bitart (Enterprise (5/325)) 1 tab Q6H PRN PO .PAIN 4-6; Start 07/06/18 at 23:00 Morphine Sulfate (morphine) 2 mg Q4H PRN IV .PAIN 7-10; Start 07/06/18 at 23:00 Influenza Virus Vaccine Quadrival (Fluzone) 0.5 ml ONCE ONCE IM* ; Start 07/08/18 at 10:00; Stop 07/08/18 at 10:01 Insulin Aspart (Novolog Insulin Pen) (Adult SC Insulin - Mild Algorithm)... Q6 SC Last administered on 07/07/18at 07:31; Admin Dose 1 UNIT; Start 07/07/18 at 06:00 EVERARDO GAN MD Jul 07, 2018 13:47
[2018-07-07] MEDS ORDERED: MIDAZOLAM 1 MG/ML 2 ML INJ ONE (14:00)
[2018-07-07] MEDS ORDERED: IODIXANOL LOCM 100 ML BTL ONE (14:00)
[2018-07-07] MEDS ORDERED: FENTAnyl 50 MCG/ML VIAL ONE (14:00)
[2018-07-07] MEDS ORDERED: LIDOCAINE 1% (MDV) 20 ML INJ ONE (14:00)
--- NOTE | 2018-07-07 14:07 | NUR ---
Pt picked up by 2 RN from recyclable materials sorter-report given. Pt on stable condition. All belongings sent to pt.
[2018-07-07] MEDS ORDERED: BIVALIRUDIN 250MG /NS 50 ML 50 ML IVPB ONE (14:43)
[2018-07-07] MEDS ORDERED: CLOPIDOGREL 300 MG TAB ONE ×2 (14:43→15:01)
[2018-07-07] MEDS ORDERED: VERAPAMIL 5 MG INJ ONE (14:49)
[2018-07-07] MEDS ORDERED: SOD CHLORIDE 0.9% 1,000 ML IV SCH (15:08)
--- NOTE | 2018-07-07 15:21 | OPR ---
Date/Time of Note Date/Time of Note DATE: 07/07/18 TIME: 15:13 Operative Report Procedure Date: Jul 07, 2018 Preoperative Diagnosis NSTEMI Postoperative Diagnosis NSTEMI Operation/Procedure Performed PCI LAD Surgeon see signature line Stone Repairer KALLIE Anesthesia Type: moderate sedation Estimated Blood Loss: minimal Transfusion none Specimen none Grafts/Implants none Complications none Procedure Description Professor Of Floriculture: Everardo Gómez MD Indication: Non-ST elevation myocardial infarction Procure performed: #1 left heart catheterization and selective right and left coronary angiogram #2 Right femoral angiogram and closure using a Perclose device 3. Successful PTCA and stenting of proximal left anterior descending artery using a 2.5 x 20 mm Synergy drug-eluting stent 4. Moderate sedation for more than 60 minutes 5. Thrombectomy of LAD using a pronto device Findings: 1. Left main: is long and has 20% ostial stenosis. it trifurcates to LAD & LCX RI. 2. LAD: Is small and has 99 % stenosis at proximal LAD ( ----> 0% post PCI) , and 40 % stenosis at mid LAD. 3. Left circumflex artery: is nondominant and small . it has 60-70% stenosis 4. RCA: is large dominant. it has 70% stenosis at distal JACEK 5. RI: is small/moderate with 20% ostial stenosis 5. LV: 154/ 17 Aortic pressure by pull back: 149/83 Procedure in detail: Written informed consent with obtained after risks benefits and alternatives discussed with the patient in detail. risks including but not limited to risk of infection vascular complications, bleeding complications, GA stroke ar rhythmia renal failure at even were discussed with the patient in detail. Patient was brought into the cardiac systems testing laboratory technician and placed in supine position. Right and left groin area was prepped and draped in regular sterile fashion and then he was in anesthetized using 1% lidocaine. Right femoral artery was cannulated and using modified seldinger technique a 6 Turkmen sheath was placed in the femoral artery. Femoral angiogram was performed JL4 guiding catheter was advanced to engage the left main coronary artery angiographic view was obtained. JR4 catheter was advanced and engaged into the right coronary artery and angiographic view was obtained. Then a pigtail was advanced to engage the left ventricle hemodynamics as recorded by pullback aortic pressure was measured. At this time we decided to perform PCI of the LAD. A JL3.5 guiding head was advanced to engage the LM artery. The BMW wire was used and advanced across the lesion and placed distal to the lesion. I used a 2.5 x 15 mm balloon which was placed across the lesion and predilated the vessel. Improved flow noted. Frontal was used and thrombectomy was done which significant improved flow in the LAD. Then I used a 2.5 x 20 mm Synergy drug-eluting stent which was placed across the lesion and deployed at 16 [place]. Final angiographic view was obtained which showed DAMIEN-3 flow no evidence of dissection and no significant residual stenosis at the site of the stent. perclose was successfully deployed. Patient tolerated the procedure well with no complication. Patient was transferred to ICU in stable condition. contrast used: 80CC visipaque Conclusions: Successful PTCA stenting of the proximal left anterior descending artery from 99% stenosis to no significant residual stenosis using a 2.5 x 20 mm Synergy drug-eluting stent. Recommendations: Aggressive medical therapy. aspirin indefinitely dual antiplatlet therapy with aspirin and Plavix Importance of compliant with her medications specifically aspirin and Plavix emphasized to the patient multiple times. Prescription has been given to the patient and I have requested the family to bring the prescription today. Risk of GA stent thrombosis and discussed with the patient if he is not compliant with his dual antiplatelet therapy EVERARDO GÓMEZ MD [facility] EVERARDO GÓMEZ MD Jul 07, 2018 15:21
[2018-07-07] MEDS ORDERED: BIVALIRUDIN 250 MG in SOD CHLORIDE 0.9% 500 ML IV SCH (15:30)
--- NOTE | 2018-07-07 15:31 | RADRPT ---
Echocardiogram Report Patient Name: RACHAEL DIALLOBPatient ID: [id number] : 1970 (47y 10m)Study Date: 07/07/2018 8:22:07 AM Gender: MAccession #: [id number] Tech: Jarod Bowden [facility] Location: [facility] Ref.Physician: BINH GRESHAM Height(Cm): BSA: Weight(Kg): Quality: AdequateAccount #: Procedures: Echocardiographic Report: Transthoracic echocardiogram with complete 2D, M-Mode, and doppler examination. Indications: NSTEMI. Measurements: 2D/M Mode Doppler Measurement Value Normal Range Measurement Value Normal Range LVIDd 2D 3.6 [ 4.2 - 5.8 ] cm AV Peak Deandre 1.4 [ 100.0 - 170.0 ] cm/sec LVIDs 2D 2.4 [ 2.5 - 4.0 ] cm AV Peak PG 8.0 [ 2.0 - 9.0 ] mmHg LVPWd 2D 1.3 [ 0.6 - 1.0 ] cm LVOT Peak Deandre 0.9 [ 70.0 - 110.0 ] cm/sec IVSd 2D 1.3 [ 0.6 - 1.0 ] cm LVOT Peak PG 3.0 [ 2.0 - 6.0 ] mmHg IVS/LVPW 2D 1.0 ratio MV E Peak Deandre 0.7 [ 60.0 - 130.0 ] cm/sec AoR Diam 2D 3.0 [ 2.6 - 3.4 ] cm MV A Peak Deandre 0.8 [ 100.0 - 120.0 ] cm/sec LA/Ao 2D 1 ratio MV E/A 1.0 [ 0.8 - 1.5 ] ratio LA Dimen 2D 3.2 [ 3.0 - 4.0 ] cm MV Decel Time 180 [ 104 - 258 ] msec Lat E` Deandre 0.1 [ 10.0 - 15.0 ] cm/sec Med E` Deandre 0.1 cm/sec MV E/A 1.0 [ 0.8 - 1.5 ] ratio RA Pressure 10.0 mmHg Findings: Left Ventricle: Normal left ventricular cavity size. Mild concentric left ventricular hypertrophy. Ejection fraction is visually estimated at 60 %. Tissue Doppler/Mitral Doppler indices are consistent with impaired relaxation (Stage I diastolic dysfunction). These segments of the LV are hypokinetic apical anterior segment, inferior apex segment and apical septum. Right Ventricle: Normal right ventricular size. Normal right ventricular systolic function. Left Atrium: The left atrium is normal in size. Right Atrium: The right atrium is normal in size. Mitral Valve: Mild mitral leaflet calcification. Mild mitral annular calcification. Trace mitral regurgitation. Aortic Valve: No significant aortic stenosis or insufficiency. Aortic cusps appear mildly calcified. Tricuspid Valve: Normal appearance of the tricuspid valve. Unable to obtain RVSP due to minimal presence of tricuspid regurgitation. Pulmonic Valve: Pulmonic valve not well visualized. There is trace pulmonic regurgitation. Pericardium: Normal pericardium with no significant pericardial effusion. Aorta: Normal aortic root. IVC: Normal size and normal respiratory collapse consistent with normal right atrial pressure. Conclusions: Normal left ventricular cavity size. Mild concentric left ventricular hypertrophy. Ejection fraction is visually estimated at 60 %. Tissue Doppler/Mitral Doppler indices are consistent with impaired relaxation (Stage I diastolic dysfunction). These segments of the LV are hypokinetic apical anterior segment, inferior apex segment and apical septum. Mild mitral leaflet calcification. Mild mitral annular calcification. Trace mitral regurgitation. No significant aortic stenosis or insufficiency. Aortic cusps appear mildly calcified. Normal appearance of the tricuspid valve. Unable to obtain RVSP due to minimal presence of tricuspid regurgitation. Electronically Signed By: Brady Gómez 2018-07-07 15:30:34 PST
--- NOTE | 2018-07-07 16:41 | NUR ---
PACU NOTES: PATIENT AWAKE MARGARITO LERT. ON ROOM AIR 95% S/P LHC STENT TO PROX LAD X 1 PERCLOSE RIGHT GROIN NO BLEEDING NO HEMATOMA, PULSES PALPABLE, INSTRUCTED TO KEEP RIGHT LEG STRAIGHT AND CAN NOT BE BEND, BLOOD SUGAR 115, EKG COMPLETED. NO COMPLAIN OF CHEST PAIN, ALL BELONGINGS WITH THE PATIENT, PRESCRIPTION FOR ASA AND PLAVIX WITH THE PATIENT. PLAVIX 600 MG TAB GIVEN IN THE ACCOUNTS RECEIVABLE MANAGER. WILL BE HERE IN ONE HR. NS @ 75 ML/ HR
--- NOTE | 2018-07-07 16:59 | NUR ---
PACU NOTES: CALLED TO HOSPITALIST DR. GARCIA TO GET AN ORDER FOR DIET AND ANTACID, NOT RESPONDING, SPOKE WITH HIM BUT GOT DISCONNECTED AND TRIED TO DIAL AGAIN @ 4473 NOT RESPONDING ANYMORE WILL AGAIN TRY LATER.
--- NOTE | 2018-07-07 18:09 | NUR ---
PACU NOTES: PATIENT ATE DINNER BROUGHT BY , VEGETARIAN ONLY. NO PAIN, RIGHT GROIN SOFT NO BLEEDING NO HEMATOMA. DUE TO VOID. PLAVIX WAS GIVEN IN CLINICAL SAFETY MANAGER 600 MG PO. 133/83, 22 87 98% ROOM AIR 98.1 PACU IN: 1530 PACU OUT: 1817
--- NOTE | 2018-07-07 18:21 | NUR ---
Received pt from PACU , pt is alert and oriented x4 , right groin with dressing dry and intact , no hematoma no bleeding , with strong pedal pulses.
[2018-07-07] MEDS: METOPROLOL (XL) 25 MG TAB PO SCH (20:03)
[2018-07-07] MEDS ORDERED: ATORVASTATIN 80 MG TAB PO SCH (21:00)
[2018-07-08] VITALS (9 sets, daily range): BP systolic 103–119; BP diastolic 62–80; PULSE 68–76; RESP 16–18
[2018-07-08] MEDS: morphine 2 MG INJ IV PRN (00:09)
--- NOTE | 2018-07-08 00:21 | NUR ---
patient s/p Left heart cath, right groin was accessed, was flat on bed for 6 hours, patient was monitored closely, no active bleeding, no hematoma on the right groin punctured site, VS stable, right pedal pulse strong, RECORDING ARTIST <2 sec, no numbness on right lower extremity, dressing on the right groin dry; post [facility] instructions given to the patient, will continue to monitor patient
[2018-07-08] MEDS: ACCU-CHEK XX SCH (01:38)
[2018-07-08] MEDS: PANTOPRAZOLE 40 MG INJ IV SCH (05:55)
--- NOTE | 2018-07-08 06:42 | NUR ---
end of shift: patient is alert and oriented, sinus rhythm on monitor, s/p LHC, right groin accessed, dressing dry, no hematoma, no bleeding, right pedal pulses strong [employer] PROGRAM CHAIR <2 sec, no numbness; denies chest pain; low back pain relieved by pain medication; patient educated on post heart cath precautions, educational materials given; needs attended; will endorse to dayshift nurse
[2018-07-08] MEDS: INSULIN ASPART [NOVOLOG] 3 ML PEN SC SCH ×2 (07:33→12:10)
[2018-07-08] MEDS: ASPIRIN 81 MG TAB PO SCH (08:04)
[2018-07-08] MEDS: METOPROLOL (XL) 25 MG TAB PO SCH (08:04)
[2018-07-08] MEDS ORDERED: CLOPIDOGREL 75 MG TAB PO SCH (09:00)
--- NOTE | 2018-07-08 09:24 | CONS ---
Consult Date/Type/Reason Admit Date/Time Jul 06, 2018 at 22:41 Initial Consult Date 07/07/18 Type of Consultation: cv Requesting Provider: BINH GRESHAM Date/Time of Note DATE: 07/08/18 TIME: 09:21 Subjective Interventional cardiology follow-up progress note Subjective: Discussed with the staff and telemetry was reviewed patient remains in normal sinus rhythm. Patient denies any chest pain or pressure to me denies any palpitation to me. He denies any groin pain. He wants to go home Objective: General: no acute distress HEENT: NC/AT. pupils are equal. round. NECK: NO JVD. no stridor. CV: RRR. systolic murmur; no gallop or rubs. PULM: no wheezing or rhonchi. GI: SOFT, NT, ND, no rebound or guarding Extremity: trace B/L LE edema. no clubbing. neuro: awake and alert, OX3. Psych: calm and pleasant rectal: deferred : normal Vascular: Right femoral with no bleeding or hematoma. No bruit no tenderness Objective Vitals Vital Signs Date Temp Pulse Resp B/P (MAP) Pulse Ox O2 O2 Flow FiO2 Time Delivery Rate 07/08/18 69 08:53 07/08/18 98.7 16 103/62 95 07:54 (76) 07/08/18 Room Air 04:05 Intake and Output 07/07/18 07/07/18 07/08/18 1515:00 23:00 07:00 IntakeIntake Total 400 ml 120 ml 1350 ml OutputOutput Total 1200 ml BalanceBalance 400 ml 120 ml 150 ml Results/Medications Result Diagram: 07/08/1831 07/08/18 0531 Results 24 hrs Laboratory Tests Test 07/07/18 10:02 07/07/18 12:02 07/07/18 16:06 07/07/18 19:54 Creatine Kinase 120 Creatine Kinase 1.7 Index Creatinine Kinase MB 2.02 (Mass) Troponin I 0.964 *H Bedside Glucose 133 115 222 H Test 07/07/18 19:58 07/07/18 23:31 07/08/18 05:31 07/08/18 07:24 Activated 39.6 H Partial Thromboplast Time Bedside Glucose 141 142 White Blood Count 8.6 Red Blood Count 5.34 Hemoglobin 15.8 Hematocrit 45.1 Mean Corpuscular 84.5 Volume Mean Corpuscular 29.6 Hemoglobin Mean Corpuscular 35.0 Hemoglobin Concent Red Cell 12.1 Distribution Width Platelet Count 217 Mean Platelet Volume 10.9 H Immature 0.300 Granulocytes % Neutrophils % 70.7 Lymphocytes % 17.0 Monocytes % 8.1 Eosinophils % 3.6 Basophils % 0.3 Nucleated Red Blood 0.0 Cells % Immature 0.030 Granulocytes # Neutrophils # 6.1 Lymphocytes # 1.5 Monocytes # 0.7 Eosinophils # 0.3 Basophils # 0.0 Nucleated Red Blood 0.0 Cells # Sodium Level 139 Potassium Level 4.0 Chloride Level 102 Carbon Dioxide Level 28 Anion Gap 9 # Blood Urea Nitrogen 11 Creatinine 0.95 Est Glomerular > 60 Filtrat Rate mL/min Glucose Level 148 Calcium Level 9.2 Phosphorus Level 3.7 Magnesium Level 2.1 Total Bilirubin 0.8 Direct Bilirubin 0.00 Indirect Bilirubin 0.8 Aspartate Amino 27 Transf (AST/SGOT) Alanine 51 Aminotransferase (AL T/SGPT) Alkaline Phosphatase 89 Creatine Kinase 97 Creatine Kinase 1.4 Index Creatinine Kinase MB 1.37 (Mass) Troponin I 1.360 *H Total Protein 6.7 Albumin 3.9 Globulin 2.80 Albumin/Globulin 1.39 Ratio Triglycerides Level 170 H Cholesterol Level 117 LDL Cholesterol, 56 Calculated HDL Cholesterol 27 Cholesterol/HDL 4.3 Ratio Thyroid Stimulating 1.150 Hormone (TSH) Free Thyroxine 1.44 Home Meds Reported Medications Ranitidine Hcl* (Ranitidine Hcl*) 150 Mg Tablet, 150 MG PO Q12, #60 TAB 07/06/18 Simvastatin* (Zocor*) 20 Mg Tablet, 20 MG PO QHS, #30 TAB 07/06/18 Benazepril Hcl* (Benazepril Hcl*) 20 Mg Tablet, 20 MG PO DAILY, #30 TAB 07/06/18 Valsartan* (Diovan*) Unknown Strength Tablet, 1 TAB PO DAILY, TAB 07/06/18 Metformin Hcl* (Metformin Hcl*) 500 Mg Tablet, 500 MG PO WITH BREAKFAST, #30 TAB 07/06/18 Medications Current Medications Diagnostic Test (Pha) (Accu-Chek) 1 ea 02 XX ; Start 07/07/18 at 02:00 Miscellaneous Information 1 ea NOTE XX ; Start 07/06/18 at 23:00 Glucose (Glutose) 15 gm Q15M PRN PO DECREASED GLUCOSE; Start 07/06/18 at 23:00 Glucose (Glutose) 22.5 gm Q15M PRN PO DECREASED GLUCOSE; Start 07/06/18 at 23:00 Dextrose (D50w Syringe) 25 ml Q15M PRN IV DECREASED GLUCOSE; Start 07/06/18 at 23:00 Dextrose (D50w Syringe) 50 ml Q15M PRN IV DECREASED GLUCOSE; Start 07/06/18 at 23:00 Glucagon (Glucagen) 1 mg Q15M PRN IM DECREASED GLUCOSE; Start 07/06/18 at 23:00 Glucose (Glutose) 15 gm Q15M PRN BUCCAL DECREASED GLUCOSE; Start 07/06/18 at 23:00 Pantoprazole (Protonix Iv) 40 mg DAILY@06 IV Last administered on 07/08/18at 05:55; Admin Dose 40 MG; Start 07/07/18 at 06:00 Atorvastatin Calcium (Lipitor) 80 mg HS PO Last administered on 07/07/18at 20:02; Admin Dose 80 MG; Start 07/07/18 at 21:00 IV Flush (NS 3 ml) 3 ml PER PROTOCOL IV ; Start 07/06/18 at 23:00 Ondansetron HCl (Zofran Inj) 4 mg Q6H PRN IV NAUSEA/VOMITING; Start 07/06/18 at 23:00 Aspirin (Aspirin) 81 mg DAILY PO Last administered on 07/08/18at 08:04; Admin Dose 81 MG; Start 07/07/18 at 09:00 Nitroglycerin (Nitroglycerin (Sl Tab) 0.4 Mg) 1 tab Q5M PRN SL .CHEST PAIN; Start 07/06/18 at 23:00 Acetaminophen (Tylenol Tab) 650 mg Q6H PRN PO .PAIN 1-3 OR TEMP; Start 07/06/18 at 23:00 Acetaminophen/ Hydrocodone Bitart (Lyons (5/325)) 1 tab Q6H PRN PO .PAIN 4-6 Last administered on 07/07/18at 20:03; Admin Dose 1 TAB; Start 07/06/18 at 23:00 Morphine Sulfate (morphine) 2 mg Q4H PRN IV .PAIN 7-10 Last administered on 07/08/18at 00:09; Admin Dose 2 MG; Start 07/06/18 at 23:00 Influenza Virus Vaccine Quadrival (Fluzone) 0.5 ml ONCE ONCE IM* ; Start 07/08/18 at 10:00; Stop 07/08/18 at 10:01 Miscellaneous Information (* Miscellaneous Pharmacy Order) Hold all Metformin ... ONCE XX ; Start 07/07/18 at 15:30; Stop 07/09/18 at 15:29 Clopidogrel Bisulfate (plaVIX) 75 mg DAILY PO Last administered on 07/08/18at 08:04; Admin Dose 75 MG; Start 07/08/18 at 09:00 Metoprolol Succinate (Toprol Xl) 25 mg DAILY PO Last administered on 07/08/18at 08:04; Admin Dose 25 MG; Start 07/07/18 at 16:30 Insulin Aspart (Novolog Insulin Pen) NOVOLOG *MILD* ALGORITHM WITH MEALS BEDTIME SC Last administered on 07/08/18at 07:33; Admin Dose 1 UNIT; Start at 07:55 Assessment/Plan Hospital Course (Demo Recall) Non-ST elevation myocardial infarction: s/p PCI of his proximal LAD on 07/07/2018 Diabetes Hypertension Dyslipidemia Recommendations: Continue with aspirin and Plavix high-dose statin Continue with Toprol Okay for discharge from cardiac standpoint. Importance of compliant with the medication specifically aspirin and Plavix but this cost with patient. I have already given him the prescription for aspirin and Plavix and he is as already filling prescription He has been given my information to contact my office and schedule an outpatient follow-up Thank you for his referral. We will continue to follow along with you EVERARDO GAN MD [facility] EVERARDO GAN MD Jul 08, 2018 09:24
[2018-07-08] MEDS ORDERED: INFLUENZA VIRUS VACCINE 0.5 ML (DISPENSING) IM* ONE (10:00)
[2018-07-08] MEDS ORDERED: BISACODYL (EC) 5 MG TAB PO ONE (11:30)
--- NOTE | 2018-07-08 16:16 | PDOCDIS ---
Discharge Instructions CONDITION [id number] Patient Condition: [id number] Stable HOME CARE INSTRUCTIONS: [id number] Diet Instructions: Yshwk4u Low Fat /Cholesterol ACTIVITY: Vofsp2Lb Activity Restrictions: [id number] Slowly Increase Activity Avoid heavy lifting [id number] Activity Restrictions Comment: [id number] no exercise 2wks FOLLOW UP/APPOINTMENTS Follow-up Plan appt primary 1wk Dr Gómez 1wk BLAKE NG MD Jul 08, 2018 16:16
[2018-07-08] MEDS ORDERED: METO-335 PO (16:18)
[2018-07-08] MEDS ORDERED: NITR0.4T32 SL (16:18)
[2018-07-08] MEDS ORDERED: ATOR-2 PO (16:18)
[2018-07-08] MEDS ORDERED: CLOP75TA28 PO (16:18)
[2018-07-08] MEDS ORDERED: ASPI-831 PO (16:18)
[2018-07-08] MEDS ORDERED: ACET325T33 PO (16:18)
--- NOTE | 2018-07-08 16:20 | PDOCDIS ---
Discharge Instructions CONDITION [id number] Patient Condition: [id number] Stable HOME CARE INSTRUCTIONS: [id number] Diet Instructions: Nnahy2j Low Fat /Cholesterol Kohbt1Iw Special Diet: Ejawk7q low salt ACTIVITY: Owmuw6Cl Activity Restrictions: Uechw1r Slowly Increase Activity Avoid heavy lifting [id number] Activity Restrictions Comment: Pgfmi2i no exercise 2wks FOLLOW UP/APPOINTMENTS Follow-up Plan appt primary 1wk Dr Gómez 1wk OTHER ORDERS: Other Orders: do not restart metformin till evening. SCHOOL/WORK RELEASE May return to School/Work on: Jul 08, 2018 BLAKE NG MD Jul 08, 2018 16:20
--- NOTE | 2018-07-08 17:46 | NUR ---
Nurses Notes: Pt aaox4 aci given. Instructed to take medication religiously specially plavix d/t stent placement. Pt with no insurance. Pt showed the medications that was already refilled plavix and aspirin. Pt requested for his home meds to be refilled as well. Texted Dr Fajardo and responded to text his preferred pharmacy and will just send it there. preferred pharmacy at [facility] pharmacy [id number] [facility] [place] [id number] fajardo. Addendum: 07/08/18 at 1751 by SOL ALVARADO RN Pt also instructed that he needs a follow up cardio rehab in 1 week and he if he goes here it will be out of his pocket and suggested to go to [facility] if ever he cannot afford it. Also instructed to follow up with Dr Gómez in 1 week. Pt verbalized understanding including above instruction with no further question.
--- NOTE | 2018-07-08 23:30 | DS ---
Date/Time of Note Date/Time of Note DATE: 07/08/18 TIME: 23:25 Discharge Summary Admission/Discharge Info Admit Date/Time Jul 06, 2018 at 22:41 Discharge Date/Time Jul 08, 2018 at 17:44 Patient Condition: Stable Consults Dr Gómez Procedures 2D ECHO Conclusions: Normal left ventricular cavity size. Mild concentric left ventricular hypertrophy. Ejection fraction is visually estimated at 60 %. Tissue Doppler/Mitral Doppler indices are consistent with impaired relaxation (Stage I diastolic dysfunction). These segments of the LV are hypokinetic apical anterior segment, inferior apex segment and apical septum. Mild mitral leaflet calcification. Mild mitral annular calcification. Trace mitral regurgitation. No significant aortic stenosis or insufficiency. Aortic cusps appear mildly calcified. Normal appearance of the tricuspid valve. Unable to obtain RVSP due to minimal presence of tricuspid regurgitation. Operation/Procedure Performed PCI LAD 1. left heart catheterization and selective right and left coronary angiogram 2. Right femoral angiogram and closure using a Perclose device 3. Successful PTCA and stenting of proximal left anterior descending artery usi ng a 2.5 x 20 mm Synergy drug-eluting stent 4. Moderate sedation for more than 60 minutes 5. Thrombectomy of LAD using a pronto device Hx of Present Illness Admitted w chest/ abd pain Hospital Course Assessment and plan 1. NSTEMI, stable discharge. sp cath/ pci lad stent. plavix recommended, will have to pay mallory. 2. Type 2 diabetes A1c 8.6 not at goal 3. Hypertension 4. Dyslipidemia S: 07/07 Abdo discomfort, constant but improved since he is not active. No diaphoresis syncope dyspnea or recent travel. No allergies, habits, or fh cad/ cancer/ stroke. 07/08 stable for dc home. i called in his old prescriptions. O: Vital signs stable sinus rhythm poor R wave progression through anteroseptal leads Home Meds Active Scripts Aspirin (Aspirin) 81 Mg Chew, 81 MG PO DAILY for 30 Days, #30 TAB Prov:BLAKE NG MD 07/08/18 Acetaminophen* (Tylenol*) 325 Mg Tablet, 650 MG PO Q6H PRN for .PAIN 1-3 OR TEMP for 1 Day, TAB Prov:BLAKE NG MD 07/08/18 Nitroglycerin* (Nitroglycerin* SL) 0.4 Mg Tab.subl, 1 TAB SL Q5M PRN for .CHEST PAIN for 3 Days, #10 Prov:BLAKE NG MD 07/08/18 Metoprolol Succinate* (Toprol XL*) 25 Mg Tab.sr.24h, 25 MG PO DAILY for 14 Days, #15 Prov:BLAKE NG MD 07/08/18 Atorvastatin* (Atorvastatin*) 80 Mg Tablet, 80 MG PO HS for 30 Days, #30 TAB Prov:BLAKE NG MD 07/08/18 Clopidogrel Bisulfate (Clopidogrel) 75 Mg Tablet, 75 MG PO DAILY for 30 Days, #30 TAB Prov:BLAKE NG MD 07/08/18 Reported Medications Ranitidine Hcl* (Ranitidine Hcl*) 150 Mg Tablet, 150 MG PO Q12, #60 TAB 07/06/18 Benazepril Hcl* (Benazepril Hcl*) 20 Mg Tablet, 20 MG PO DAILY, #30 TAB 07/06/18 Metformin Hcl* (Metformin Hcl*) 500 Mg Tablet, 500 MG PO WITH BREAKFAST, #30 TAB 07/06/18 Discontinued Reported Medications Simvastatin* (Zocor*) 20 Mg Tablet, 20 MG PO QHS, #30 TAB 07/06/18 Valsartan* (Diovan*) Unknown Strength Tablet, 1 TAB PO DAILY, TAB 07/06/18 Follow-up Plan appt primary 1wk Dr Gómez 1wk Primary Care Provider Care Physician No Primary Time spent on discharge: < 30 minutes Pending Labs Laboratory Tests Test 07/07/18 23:31 07/08/18 05:31 07/08/18 07:24 07/08/18 12:07 Bedside 141 142 190 Glucose mg/dL (70-220) mg/dL (70-220) mg/dL (70-220) White Blood 8.6 Count 10^3/ul (4.8-1 0.8) Red Blood 5.34 Count 10^6/ul (4.70- 6.10) Hemoglobin 15.8 g/dl (14.0-18. 0) Hematocrit 45.1 % (42.0-52.0) Mean 84.5 Corpuscular fl (82.0-101.0 Volume ) Mean 29.6 Corpuscular pg (29.0-33.0) Hemoglobin Mean 35.0 Corpuscular g/dl (32.0-37. Hemoglobin Conc 0) ent Red Cell 12.1 Distribution % (11.5-14.5) Width Platelet Count 217 10^3/UL (140-4 15) Mean Platelet 10.9 Volume fl (7.4-10.4) Immature 0.300 Granulocytes % % (0.001-0.429 ) Neutrophils % 70.7 % (39.0-77.0) Lymphocytes % 17.0 % (15.0-51.0) Monocytes % 8.1 % (0.0-11.0) Eosinophils % 3.6 % (0.0-7.0) Basophils % 0.3 % (0.0-2.0) Nucleated Red 0.0 Blood Cells % /100WBC (0.0-0 .0) Immature 0.030 Granulocytes # 10^3/ul (0.0-0 .031) Neutrophils # 6.1 10^3/ul (1.6-7 .5) Lymphocytes # 1.5 10^3/ul (0.8-2 .9) Monocytes # 0.7 10^3/ul (0.3-0 .9) Eosinophils # 0.3 10^3/ul (0.0-0 .5) Basophils # 0.0 10^3/ul (0.0-0 .1) Nucleated Red 0.0 Blood Cells # 10^3/ul (0.0-0 .0) Sodium Level 139 mmol/L (135-14 4) Potassium 4.0 Level mmol/L (3.5-5. 1) Chloride Level 102 mmol/L (97-110 ) Carbon Dioxide 28 Level mmol/L (21-31) Anion Gap 9 (5-13) Blood Urea 11 Nitrogen mg/dl (7-20) Creatinine 0.95 mg/dl (0.61-1. 24) Est Glomerular > 60 Filtrat mL/min (>60) Rate mL/min Glucose Level 148 mg/dl (70-220) Calcium Level 9.2 mg/dl (8.4-10. 2) Phosphorus 3.7 Level mg/dl (2.5-4.9 ) Magnesium 2.1 Level mg/dl (1.7-2.5 ) Total 0.8 Bilirubin mg/dl (0.2-1.3 ) Direct 0.00 Bilirubin mg/dl (0.00-0. 20) Indirect 0.8 Bilirubin mg/dl (0-1.1) Aspartate Amino 27 Transf (AST/SGO IU/L (15-46) T) Alanine 51 Aminotransferas IU/L (13-69) e (ALT/SGPT) Alkaline 89 Phosphatase IU/L (42-121) Creatine 97 Kinase IU/L (23-200) Creatine Kinase 1.4 Index Creatinine 1.37 Kinase MB ng/ml (0.0-2.4 (Mass) ) Troponin I 1.360 ng/ml (0.000-0 .120) Total Protein 6.7 g/dl (6.1-8.1) Albumin 3.9 g/dl (3.3-4.9) Globulin 2.80 g/dl (1.3-3.2) Albumin/Globuli 1.39 n Ratio Triglycerides 170 Level mg/dl (0-149) Cholesterol 117 Level mg/dl (100-200 ) LDL 56 mg/dl Cholesterol, Calculated HDL 27 Cholesterol mg/dl (27-67) Cholesterol/HDL 4.3 RATIO Ratio Thyroid 1.150 Stimulating MIU/L (0.465-4 Hormone (TSH) .680) Free Thyroxine 1.44 ng/dl (0.64-1. 79) BLAKE NG MD Jul 08, 2018 23:30
[2018-07-09] MEDS ORDERED: PANTOPRAZOLE (EC) 40 MG TAB PO SCH (06:00)
== END 2018-07-08 17:44 | disposition home or self-care (01) | DRG 249 ==
LOC: E/R 15:59 → MS3 22:41 → TEL 07-07 18:10
PROVIDERS: ADMIT Internal Medicine; ATTEND Internal Medicine
PROC: B211YZZ Fluoroscopy of Multiple Coronary Arteries using Other Contrast (ICD-10-PCS; 2018-07-07)
PROC: 02703DZ Dilation of Coronary Artery, One Artery with Intraluminal Device, Percutaneous Approach (ICD-10-PCS; principal; 2018-07-07 15:00)
PROC: 4A023N7 Measurement of Cardiac Sampling and Pressure, Left Heart, Percutaneous Approach (ICD-10-PCS; 2018-07-07 15:00)
DX: I21.4 Non-ST elevation (NSTEMI) myocardial infarction (principal); I25.10 Atherosclerotic heart disease of native coronary artery without angina pectoris; E78.5 Hyperlipidemia, unspecified; E11.9 Type 2 diabetes mellitus without complications
CPT/HCPCS: 36415; 71045; 80053; 80061; 82550; 82553; 82962; 83036; 83735; 84100; 84439; 84443; 84484; 85025; 85049; 85610; 85670; 85730; 90686; 93005; 93306; 93458; C1725; C1757; C1760; C1874; C1887; C1894; C9113; C9600; J0583; J1644; J1815; J2250; J2270; J2405; J3010; J7030; Q9967

== ENCOUNTER 2018-10-30 06:23 | Emergency (ER) | payer MEDICAID, OTHER ==
[~2018-10-30] VITALS: Ht 152.4 cm; Wt 78.8 kg
[~2018-10-30 06:23] MED LIST: ACET325T33 PO; ASPI-831 PO; ATOR-2 PO; BENA20TA4 PO; CLOP75TA28 PO; METF500T24 PO; METO-335 PO; NITR0.4T32 SL; RANI150T5 PO
[2018-10-30 06:24] VITALS: BP 165/89; PULSE 96; RESP 18; Ht 152.4 cm; Wt 78.8 kg
--- NOTE | 2018-10-30 06:45 | ERD ---
ER Documentation Chief Complaint Chief Complaint R LEG/KNEE PAIN SINCE YESTERDAY HPI Patient is a 48-year-old male with past medical history of hyperlipidemia, hypertension, who presents the ER for concerns of right knee/leg pain x1 day. Patient states he was having pain behind his knee. Patient states the pain has now progressed to above his knee. Patient denies any falls or trauma. Patient denies any fevers or chills. Patient denies any warmth, redness or swelling. Patient states he did see his primary doctor yesterday and was told it was likely a minor injury. Patient presents today requesting x-rays. ROS All systems reviewed and are negative except as per history of present illness. Medications Home Meds Active Scripts Ibuprofen* (Motrin*) 600 Mg Tab, 600 MG PO Q6, #30 TAB Prov:JENI CASTRO PA-C 10/30/18 Aspirin (Aspirin) 81 Mg Chew, 81 MG PO DAILY for 30 Days, #30 TAB Prov:BLAKE NG MD 07/08/18 Acetaminophen* (Tylenol*) 325 Mg Tablet, 650 MG PO Q6H PRN for .PAIN 1-3 OR TEMP for 1 Day, TAB Prov:BLAKE NG MD 07/08/18 Nitroglycerin* (Nitroglycerin* SL) 0.4 Mg Tab.subl, 1 TAB SL Q5M PRN for .CHEST PAIN for 3 Days, #10 Prov:BLAKE NG MD 07/08/18 Metoprolol Succinate* (Toprol XL*) 25 Mg Tab.sr.24h, 25 MG PO DAILY for 14 Days, #15 Prov:BLAKE NG MD 07/08/18 Atorvastatin* (Atorvastatin*) 80 Mg Tablet, 80 MG PO HS for 30 Days, #30 TAB Prov:BLAKE NG MD 07/08/18 Clopidogrel Bisulfate (Clopidogrel) 75 Mg Tablet, 75 MG PO DAILY for 30 Days, #30 TAB Prov:BLAKE NG MD 07/08/18 Reported Medications Ranitidine Hcl* (Ranitidine Hcl*) 150 Mg Tablet, 150 MG PO Q12, #60 TAB 07/06/18 Benazepril Hcl* (Benazepril Hcl*) 20 Mg Tablet, 20 MG PO DAILY, #30 TAB 2/11/19 Metformin Hcl* (Metformin Hcl*) 500 Mg Tablet, 500 MG PO WITH BREAKFAST, #30 TAB 07/06/18 Allergies Allergies: Coded Allergies: No Known Allergy (Unverified , 07/06/18) PMhx/Soc History of Surgery: Yes (APPENDECTOMY 2009) Anesthesia Reaction: Yes Hx Neurological Disorder: No Hx Respiratory Disorders: No Hx Cardiac Disorders: Yes (HTN, INCREASE CHOLESTEROL ) Hx Psychiatric Problems: No Hx Miscellaneous Medical Probl: No Hx Alcohol Use: No Hx Substance Use: No Hx Tobacco Use: No FmHx Family History: No diabetes Physical Exam Vitals Vital Signs Date Temp Pulse Resp B/P (MAP) Pulse Ox O2 O2 Flow FiO2 Time Delivery Rate 10/30/18 98.9 96 18 165/89 99 06:24 (114) Physical Exam GENERAL: Well-developed, well-nourished male. Appears in no acute distress. HEAD: Normocephalic, atraumatic. EYES: Pupils are equally reactive bilaterally. EOMs grossly intact. No conjunctival erythema. NECK: Supple. No meningismus. Normal range of motion of the neck. LUNG: Clear to auscultation bilaterally. No rhonchi, wheezing, rales or coarse breath sounds. HEART: Regular rate and rhythm. No murmurs, rubs or gallops. EXTREMITIES: Equal pulses bilaterally. No peripheral clubbing, cyanosis or edema. No unilateral leg swelling. NEUROLOGIC: Alert and oriented. Moving all four extremities without any difficulty. Normal speech. Steady gait. SKIN: Normal color. Warm and dry. No rashes or lesions. RLE: No deformity, erythema, ecchymosis. No warmth. Mild swelling noted superior to the kneecap. Decreased range of motion secondary to pain. Tender to palpation over the superior lateral knee. Nontender to palpation of the distal tibia/fibula. Sensation intact to light touch. Neurovascularly intact. (Able to plantarflex, dorsiflex, cristel foot, invert foot, raise big toe.) 2+ DP and DT pulses. Tender to palpation of the calf. No palpable cords. Procedures/MDM ED COURSE: The patient was stable throughout ED course. I kept the patient and/or family informed of laboratory and diagnostic imaging results throughout the ED course. DIAGNOSTIC IMAGING: Read by radiologist. Patient: RACHAEL DIALLO : 1970 Age: 48 Sex: M MR #: [id number] DOS: 10/30/18 0635 Ordering MD: JENI CASTRO PA-C Location: [facility] Room/Bed: PROCEDURE: XR Knee. CLINICAL INDICATION: R knee pain TECHNIQUE: AP, lateral and oblique view of the right knee were obtained. The images reviewed on a PACS workstation. COMPARISON: None. FINDINGS: No evidence of acute fracture or dislocation. Mild tricompartmental arthrosis with joint space narrowing and marginal osteophyte formation. Moderate sized joint effusion. IMPRESSION: Moderate sized joint effusion without evidence of fracture. Mild tricompartmental degenerative joint disease. RPTAT:AAJJ Physician Christie Date Time Electronically viewed and signed by Physician Christie on 10/30/2018 07:28 RF/ CC: JENI CASTRO PA-C [id number] PROCEDURES: SPLINT APPLICATION: The patient was verbally consented at bedside prior to splint application. Patient was explained the risks, benefits and alternatives to this procedure. The patient was neurovascularly intact prior to and status post application of the splint. The patient tolerated the procedure well with no complications. Splint type: Knee immobilizer Extremity: Right knee Indication: Moderate sized joint effusion without evidence of fracture. Mild tricompartmental degenerative joint disease. MEDICATIONS GIVEN: Patient was offered pain medication however he declined. MEDICAL DECISION MAKING: This is a 48-year-old male who presents the ER for concerns of right knee and leg pain x1 day.. Vital signs were reviewed. Patient was afebrile. On exam, patient had no warmth, redness to the affected joint. Patient denied fevers or chills. Low suspicion for septic joint. X-ray imaging was obtained and showed Moderate sized joint effusion without evidence of fracture. Mild tricompartmental degenerative joint disease. Doppler ultrasound was negative for DVT. See formal report. Patient was given a knee immobilizer. Patient advised to follow-up with oil and gas specialist. Referral information provided. Patient will likely need MRI. Patient already had crutches from home. Patient was advised to remain nonweightbearing to the affected extremity. R ICE therapy discussed. Low suspicion for fracture, dislocation, septic joint, osteomyelitis, DVT or compartment syndrome. Unable to rule any ligament or tendon injuries at this time. PRESCRIPTIONS: Ibuprofen DISCHARGE: At this time, patient is stable for discharge and outpatient management. RICE therapy and ROM exercises were advised to avoid stiffness. I have instructed the patient to follow-up with his/her primary care physician in 1-2 days. I have discussed with the patient the possibility of needing to see an oil and gas specialist for further workup and imaging if the pain persists. I have instructed the patient to promptly return to the ER for any new or worsening symptoms including increased pain, swelling, redness, warmth or fever. The patient and/or family expressed understanding of and agreement with this plan. All questions were answered. Home care instructions were provided. Patients blood pressure was elevated (>120/80) but appears stable without evidence of hypertensive emergency, hypertensive urgency or end-organ failure. I had discussion with the patient about the risks of hypertension. I have advised the patient to follow up with his/her primary care physician for outpatient monitoring and treatment for hypertension in 2-3 days. I have instructed the patient to return to the ER for any new or worsening symptoms including chest pain, shortness of breath, headache, blurred vision, confusion, nausea, vomiting or LOC. Disclaimer: Inadvertent spelling and grammatical errors are likely due to EHR/dictation software use and do not reflect on the overall quality of patient care. Also, please note that the electronic time recorded on this note does not necessarily reflect the actual time of the patient encounter. Departure Diagnosis: Primary Impression: Right knee pain Chronicity: acute Qualified Codes: M25.561 - Pain in right knee Condition: Fair Patient Instructions: Knee Pain, Uncertain Cause Referrals: COMMUNITY CLINICS YOU HAVE RECEIVED A MEDICAL SCREENING EXAM AND THE RESULTS INDICATE THAT YOU DO NOT HAVE A CONDITION THAT REQUIRES URGENT TREATMENT IN THE EMERGENCY DEPARTMENT. FURTHER EVALUATION AND TREATMENT OF YOUR CONDITION CAN WAIT UNTIL YOU ARE SEEN IN YOUR DOCTORS OFFICE WITHIN THE NEXT 1-2 DAYS. IT IS YOUR RESPONSIBILITY TO MAKE AN APPOINTMENT FOR FOLOW-UP CARE. IF YOU HAVE A PRIMARY DOCTOR --you should call your primary doctor and schedule an appointment IF YOU DO NOT HAVE A PRIMARY DOCTOR YOU CAN CALL OUR PHYSICIAN REFERRAL HOTLINE AT IF YOU CAN NOT AFFORD TO SEE A PHYSICIAN YOU CAN CHOSE FROM THE FOLLOWING [facility] [address] [facility] [address] [facility] [address] [facility] [address] [facility] [address] [facility]. [facility] [address] [facility] YOU HAVE RECEIVED A MEDICAL SCREENING EXAM AND THE RESULTS INDICATE THAT YOU DO NOT HAVE A CONDITION THAT REQUIRES URGENT TREATMENT IN THE EMERGENCY DEPARTMENT. FURTHER EVALUATION AND TREATMENT OF YOUR CONDITION CAN WAIT UNTIL YOU ARE SEEN IN YOUR DOCTORS OFFICE WITHIN THE NEXT 1-2 DAYS. IT IS YOUR RESPONSIBILITY TO MAKE AN APPOINTMENT FOR FOLOW-UP CARE. IF YOU HAVE A PRIMARY DOCTOR --you should call your primary doctor and schedule and appointment IF YOU DO NOT HAVE A PRIMARY DOCTOR YOU CAN CALL OUR PHYSICIAN REFERRAL HOTLINE AT . IF YOU CAN NOT AFFORD TO SEE A PHYSICIAN YOU CAN CHOSE FROM THE FOLLOWING [facility]: [facility] [address] [place] [address] [address] [place] [address] [facility] [address] [place] [address] [facility] 7 a.m.- 11 p.m. Every Day of the Week NO APPOINTMENT OR AUTHORIZATION NEEDED Additional Instructions: Follow-up with an oil and gas specialist on an outpatient basis. RICE therapy advised as discussed. You may need an MRI on an outpatient basis. Call your primary care doctor TOMORROW for an appointment during the next 1-2 days.See the doctor sooner or return here if your condition worsens before your appointment time. JENI CASTRO PA-C Oct 30, 2018 06:45
[2018-10-30] MEDS ORDERED: IBUP-1542 PO (07:37)
== END 2018-10-30 08:06 | disposition home or self-care (01) ==
LOC: FTE 06:23
DX: M25.561 Pain in right knee (principal); I10 Essential (primary) hypertension; Z79.01 Long term (current) use of anticoagulants; Z79.82 Long term (current) use of aspirin; Z79.84 Long term (current) use of oral hypoglycemic drugs
CPT/HCPCS: 73562; 93971